=== PATIENT | female | born 1950 | race Caucasian/White ===

== ENCOUNTER 2018-08-19 07:13 | Day surgery (SDC) ==
[2018-08-19] MEDS: BETADINE OPTH PREP OP PRN ×2 (08:20→09:00)
[2018-08-19] MEDS: TETRACAINE 0.5% UNIT-DOSE OP PRN ×2 (08:20→09:00)
[2018-08-19] MEDS: CYCLOGYL 2% OPTH OP PRN ×3 (08:21→08:31)
[2018-08-19] MEDS ORDERED: BRIMONIDINE TARTRATE 0.2% OPTH SOL OP PRN (08:28)
[2018-08-19] MEDS ORDERED: LIDOCAINE 1%/PHENYLEPHRINE 1.5% BSS (SURGERY) INTRAOCULA ONE (08:28)
[2018-08-19] MEDS ORDERED: ZOFRAN 4 MG/2 ML IVP ONE (08:28)
[2018-08-19] MEDS ORDERED: BSS WITH EPINEPHRINE OP ONE (08:28)
[2018-08-19] MEDS ORDERED: LIDOCAINE 1% 20 ML MDV ID STA (08:28)
[2018-08-19] MEDS ORDERED: DEX-MOXI-KETOR OPTH INJ 1/0.5/0.4 MG/ML IO ONE (08:28)
[2018-08-19 08:39] VITALS: TEMP 98.2
[2018-08-19] MEDS ORDERED: VERSED ONE (09:15)
[2018-08-19] MEDS ORDERED: SUBLIMAZE ONE (09:15)
[2018-08-19] MEDS ORDERED: ZOFRAN 4 MG/2 ML ONE (09:15)
[2018-08-19 13:29] VITALS: BP 96/50
== END 2018-08-19 10:15 | disposition home or self-care (01) ==
LOC: SURG 07:13
PROVIDERS: ATTEND Ophthalmology
DX: H25.12 Age-related nuclear cataract, left eye (principal)

== ENCOUNTER 2018-09-08 07:55 | Day surgery (SDC) | payer OTHER ==
[2018-09-08] MEDS: BETADINE OPTH PREP OP PRN ×2 (09:30→09:55)
[2018-09-08] MEDS: TETRACAINE 0.5% UNIT-DOSE OP PRN ×2 (09:30→09:55)
[2018-09-08] MEDS: CYCLOGYL 2% OPTH OP PRN ×3 (09:31→09:41)
[2018-09-08] MEDS ORDERED: BSS WITH EPINEPHRINE OP ONE (09:34)
[2018-09-08] MEDS ORDERED: ZOFRAN 4 MG/2 ML IVP ONE (09:34)
[2018-09-08] MEDS ORDERED: BRIMONIDINE TARTRATE 0.2% OPTH SOL OP PRN (09:34)
[2018-09-08] MEDS ORDERED: LIDOCAINE 1%/PHENYLEPHRINE 1.5% BSS (SURGERY) INTRAOCULA ONE (09:34)
[2018-09-08] MEDS ORDERED: LIDOCAINE 1% 20 ML MDV ID STA (09:34)
[2018-09-08] MEDS ORDERED: DEX-MOXI-KETOR OPTH INJ 1/0.5/0.4 MG/ML IO ONE (09:34)
[2018-09-08] MEDS ORDERED: VERSED ONE (09:49)
[2018-09-08] MEDS ORDERED: SUBLIMAZE ONE (09:49)
[2018-09-08] MEDS ORDERED: ZOFRAN 4 MG/2 ML ONE (09:49)
[2018-09-08 11:32] VITALS: TEMP 98.1
[2018-09-10 15:18] VITALS: BP 132/66
== END 2018-09-08 11:10 | disposition home or self-care (01) ==
LOC: SURG 07:55
PROVIDERS: ATTEND Ophthalmology
DX: H25.11 Age-related nuclear cataract, right eye (principal)